=== PATIENT | female | born 1955 | race Caucasian/White ===

== ENCOUNTER 2020-08-01 10:51 | Emergency (ER) | payer BC ==
[~2020-08-01] VITALS: Ht 177.8 cm; Wt 76.3 kg
[2020-08-01 11:01] VITALS: BP 148/63
[2020-08-01] MEDS ORDERED: LIDOcaine 1% W/epiNEPHrine 1:200,000 10ml vial IJ ONE (12:45)
[2020-08-01] MEDS ORDERED: TETanus/Pertussis (Acell)/Diphther VAC/PF (Tdap-Adult) 0.5ml syringe IMVAC ONE (12:45)
[2020-08-01] MEDS ORDERED: LIDOcaine 1% w/epiNEPHrine 1:200,000 30ml vial IJ ONE (12:50)
== END 2020-08-01 14:37 | disposition home or self-care (01) ==
LOC: ER 10:51
DX: S61.512A Laceration without foreign body of left wrist, initial encounter (principal); Z88.0 Allergy status to penicillin; W26.8XXA Contact with other sharp object(s), not elsewhere classified, initial encounter; Y93.89 Activity, other specified; Y92.89 Other specified places as the place of occurrence of the external cause; Y99.8 Other external cause status
CPT/HCPCS: 12001; 90471; 90715; 99283

== ENCOUNTER 2024-04-06 07:35 | Day surgery (SDC) | payer MEDICARE, BC ==
[2024-04-06] VITALS (11 sets, daily range): BP systolic 118–157; BP diastolic 63–75; PULSE 60–72; RESP 10–15; TEMP 98.2; O2SAT 93–99
[~2024-04-06] VITALS: Ht 177.8 cm; Wt 83.9 kg
[2024-04-06] MEDS ORDERED: dextrose 50%-water 50ml dispensing syringe IV PRN ×2 (08:00)
[2024-04-06] MEDS ORDERED: normal saline 1,000 ML IV SCH (08:00)
[2024-04-06] MEDS ORDERED: nitroGLYCERIN 0.4mg SUBLingual tab SL PRN (08:00)
[2024-04-06] MEDS ORDERED: DEXTROSE 15 GM of carb/4 tabs (each vial/BOTTLE has 4 tablets) PO PRN ×2 (08:00)
[2024-04-06] MEDS ORDERED: glucagon, human recombinant 1mg kit SUBCUT PRN (08:00)
[2024-04-06] MEDS ORDERED: METF-438 PO (08:05)
[2024-04-06] MEDS ORDERED: GLIP10TA21 PO (08:05)
[2024-04-06] MEDS ORDERED: INSU100I8 SQ (08:05)
[2024-04-06] MEDS ORDERED: INSU100I29 SQ (08:05)
[2024-04-06 08:33] LABS: BASOPHILS # (AUTO) 0.1 X10'3 (0-0.2); BASOPHILS % (AUTO) 0.9 % (0-1); EOSINOPHILS # (AUTO) 0.5 X10'3 (0-0.9); EOSINOPHILS % (AUTO) 6.1 % (0-6); HEMATOCRIT 42.9 % (35.0-45.0); HEMOGLOBIN 14.4 g/dl (12.0-16.0); LYMPHOCYTES # (AUTO) 2.3 X10'3 (1.1-4.8); LYMPHOCYTES % (AUTO) 27.3 % (21-51); MEAN CORPUSCULAR HEMOGLOBIN 29.4 PG (27.0-31.0); MEAN CORPUSCULAR HGB CONC 33.5 g/dL (33.0-36.5); MEAN CORPUSCULAR VOLUME 87.7 FL (78-98); MEAN PLATELET VOLUME 8.9 FL (7.4-10.4); MONOCYTES # (AUTO) 0.7 X10'3 (0-0.9); MONOCYTES % (AUTO) 7.9 % (2-12); NEUTROPHILS # (AUTO) 4.9 X10'3 (1.8-7.7); NEUTROPHILS % (AUTO) 57.8 % (42-75); PLATELET COUNT 208 X10'3 (140-440); RED BLOOD COUNT 4.89 X10'6 (4.20-5.60); RED CELL DISTRIBUTION WIDTH 14.6 % (11.5-14.5); WHITE BLOOD COUNT 8.4 X10'3 (4.5-11.0)
[2024-04-06] MEDS ORDERED: LIDOcaine 1% 30ml preserv. free vial ONE (08:34)
[2024-04-06] MEDS ORDERED: fentaNYL/PF 50MCG/1 ML 2ML syringe ONE (08:34)
[2024-04-06] MEDS ORDERED: iohexol 350 MG/ML 50ML vial IV ONE (08:35)
[2024-04-06] MEDS ORDERED: iohexol 350MG/ML 100ml bottle IV ONE (08:35)
[2024-04-06] MEDS ORDERED: midazolam 1 mg/ML 2ml injection ONE (08:35)
[2024-04-06 08:51] LABS: ALBUMIN 3.8 G/DL (3.4-5.0); ANION GAP 8 (8-16); BLOOD UREA NITROGEN 18 MG/DL (7-18); BUN/CREATININE RATIO 21.7 (10.0-20.0); CALCIUM 9.7 MG/DL (8.5-10.1); CHLORIDE 104 MMOL/L (99-107); CREATININE 0.83 MG/DL (0.40-0.90); GLUCOSE 211 MG/DL (70-104); POTASSIUM 4.3 MMOL/L (3.5-5.1); SODIUM 138 MMOL/L (135-145); TOTAL CARBON DIOXIDE 26.1 MMOL/L (24-32); eCRCL 72 ML/MIN; eGFR 69 ML/MIN
[2024-04-06] MEDS: diphenhydrAMINE 25mg capsule PO PRN (09:00)
[2024-04-06] MEDS: LORazepam 0.5 MG tablet PO PRN (09:00)
[2024-04-06 09:24] LABS: APTT 27 SECONDS (22-32); INR 0.9 INR; PROTHROMBIN TIME 9.8 SECONDS (9.0-12.0)
[2024-04-06 09:34] LABS: HEMOGLOBIN A1C 8.7 % (4.5-6.2)
[2024-04-06] MEDS ORDERED: proCHLORperazine 10 MG/2 ml inj IV PRN (10:45)
[2024-04-06] MEDS ORDERED: HYDROcodone/acetaminophen 5mg/325mg tablet PO PRN (10:45)
[2024-04-06] MEDS ORDERED: OXAZEpam 15mg capsule PO PRN (10:45)
[2024-04-06] MEDS: HYDROcodone/acetaminophen 10/325mg tab PO PRN (11:54)
[2024-04-06] MEDS: ondansetron/PF 4mg/2ml inj IV PRN (11:55)
== END 2024-04-06 15:50 | disposition home or self-care (01) ==
LOC: SSTAY O 07:35
PROVIDERS: ATTEND Internal Medicine Cardiovascular Disease
DX: R94.39 Abnormal result of other cardiovascular function study (principal); I25.119 Atherosclerotic heart disease of native coronary artery with unspecified angina pectoris; E11.9 Type 2 diabetes mellitus without complications; Z79.4 Long term (current) use of insulin; Z88.0 Allergy status to penicillin; Z88.2 Allergy status to sulfonamides; Z79.899 Other long term (current) drug therapy
CPT/HCPCS: 36415; 71046; 80048; 82948; 83036; 85025; 85610; 85730; 93005; 93458; 99152; A6258; C1760; J1644; J2001; J2250; J2405; J3010; J7030; Q0163; Q9967; Z7610; 99153; J3490